=== PATIENT | female | born 1990 | race Caucasian/White ===

== ENCOUNTER → 2017-03-12 | Outpatient (CLI) | payer MEDICAID | LOC: FIMAGING 12:08 | PROVIDERS: ATTEND Physician Assistant Medical | DX: G43.009 Migraine without aura, not intractable, without status migrainosus (principal) ==

== ENCOUNTER 2017-10-31 07:12 | Day surgery (SDC) | payer MEDICAID ==
[2017-10-31 07:36] VITALS: PULSE 120
[2017-10-31] MEDS ORDERED: LR 1,000 ML IV ONE (07:40)
--- NOTE | 2017-10-31 08:32 | PDGENHP ---
History & Physical Chief Complaint: RUQ pain, diarrhea, nausea and vomiting Relevant Physical Exam: GEN: NAD. Cardiac: RRR. Lungs: CTA B. Abd: Soft, nt, nd
[2017-10-31] MEDS ORDERED: MIDAZOLAM 2 MG/2 ML VIAL ONE (08:42)
[2017-10-31] MEDS ORDERED: PROPOFOL/EMULSION 500 MG/50 ML BOTTLE IV ONE (08:46)
[2017-10-31] MEDS ORDERED: PROPOFOL 200 MG/20 ML VIAL ONE (09:06)
[2017-10-31] MEDS ORDERED: ALBUTEROL 3 ML DEYVIAL IH PRN (09:11)
[2017-10-31] MEDS ORDERED: ONDANSETRON 4 MG/2 ML VIAL IVP PRN (09:11)
[2017-10-31] MEDS ORDERED: NALOXONE HCL 0.4 MG/ML INJ IVP PRN (09:11)
[2017-10-31] MEDS ORDERED: LR 500 ML IV PRN (09:11)
--- NOTE | 2017-10-31 09:11 | PDANEPAE ---
ANE Past Medical History - Cardiovascular History Hx Hypertension: No Hx Arrhythmias: No Hx Chest Pain: No Hx Coronary Artery / Peripheral Vascular Disease: No Hx CHF / Valvular Disease: Yes Hx Palpitations: No Cardiovascular History Comment: mitral valve prolapse - Pulmonary History Hx COPD: No Hx Asthma/Reactive Airway Disease: No Hx Recent Upper Respiratory Infection: No Hx Oxygen in Use at Home: No Hx Sleep Apnea: No Sleep Apnea Screening Result - Last Documented: Negative Pulmonary History Comment: recent bronchitis-on Antibx. Uses Albuterol inhaler PRN. sleep apnea symptoms. 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 muscular atrophy - Neurologic History Hx Cerebrovascular Accident: No Hx Seizures: No Hx Dementia: No Neurologic History Comment: migraines,cluster H/A's - Endocrine History Hx Diabetes: No - Renal History Hx Renal Disorders: No Renal History Comment: frequent urination - Liver History Hx Hepatic Disorders: No - Neurological & Psychiatric Hx Hx Neurological and Psychiatric Disorders: Yes Neurological / Psychiatric History Comment: neck and back pain since teenager. 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 Chronic Lyme Disease. 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 wisdom teeth removal- oral surgeon's office ANE Review of Systems Review of Systems: - Exercise capacity METS (RN): 4 METS ANE Patient History - Allergies Allergies/Adverse Reactions: fluoroquinolones Allergy (Uncoded 10/24/17 15:50) Other-Enter Comments - Home Medications Home Medications: Albuterol 10/24/17 [Last Taken Unknown] BENADRYL 10/24/17 [Last Taken Unknown] Loratadine 10/24/17 [Last Taken 10/30/17] Magnesium Glycinate 10/24/17 [Last Taken 10/30/17] Melatonin 10/24/17 [Last Taken Unknown] Moducare 10/24/17 [Last Taken 10/30/17] Monolaurin 10/24/17 [Last Taken 10/30/17] Probiotic 10/24/17 [Last Taken Unknown] SUMAtriptan 10/24/17 [Last Taken Unknown] - NPO status NPO Since - Liquids (Date): 10/31/17 NPO Since - Liquids (Time): 01:00 NPO Since - Solids (Date): 10/30/17 NPO Since - Solids (Time): 10:00 - Smoking Hx Smoking Status: Heavy smoker ANE Labs/Vital Signs - Vital Signs Blood Pressure: 127/81 Heart Rate: 120 Respiratory Rate: 18 O2 Sat (%): 96 Height: 175.26 cm Weight: 58.06 kg ANE Physical Exam - Airway Neck exam: FROM Mallampati Score: Class 1 Mouth exam: normal dental/mouth exam - Pulmonary Pulmonary: no respiratory distress, no rales or rhonchi, clear to auscultation - Cardiovascular Cardiovascular: regular rate and rhythym, no murmur, rub, or gallop - ASA Status ASA Status: III ANE Anesthesia Plan Anesthesia Plan: GA with mask
[2017-10-31] MEDS ORDERED: RANITIDINE 50 MG/2 ML VIAL ONE (09:14)
--- NOTE | 2017-10-31 09:31 | GIREPORT ---
[facility] - Endoscopy Department Patient Name: Danielle Alvarez Procedure Date: 10/31/2017 8:33 AM Patient Type: Outpatient Attending MD/ ER Physician: Kelvin Head MD Procedure: Upper GI endoscopy Indications: Epigastric abdominal pain, Dysphagia, Nausea with vomiting Providers: Kelvin Head MD Medicines: Monitored Anesthesia Care Complications: No immediate complications. Description of Procedure: After obtaining informed consent, the endoscope was passed under direct vision. Throughout the procedure, the patient's blood pressure, pulse, and oxygen saturations were monitored continuously. The Endoscope was intro duced through the mouth, and advanced to the second part of duodenum. The [facility] er GI endoscopy was accomplished without difficulty. The patient tolerated th e procedure well. Findings: The examined esophagus was normal. Biopsies were taken with a cold forc eps for histology and mast cells. Verification of patient identification fo r the specimen was done by the physician and nurse using the patient's name a nd date. Estimated blood loss was minimal. The entire examined stomach was normal. Biopsies were taken with a cold forceps for histology and mast cells. Verification of patient identific ation for the specimen was done by the physician and nurse using the patient' s name and date. Estimated blood loss was minimal. The examined duodenum was normal. Biopsies were taken with a cold force ps for histology and mast cells. Verification of patient identification fo r the specimen was done by the physician and nurse using the patient's name a nd date. Estimated blood loss was minimal. Estimated Blood Loss: Estimated blood loss: none. Post Op Diagnosis: - Normal esophagus. Biopsied for histology and mast cells. - Normal stomach. Biopsied for histology and mast cells. - Normal examined duodenum. Biopsied for histology and mast cells. Recommendation: - Discharge patient to home (with escort). - Resume previous diet. - Continue present medications. - Return to GI clinic as previously scheduled. - Your pathology results are available within 10 days. - Thank you for allowing me to participate in the care of your patient. Attending Participation: I personally performed the entire procedure. Kelvin Head MD Kelvin Head MD 10/31/2017 9:30:46 AM This report has been signed electronicallyDajoselyn Head MD Number of Addenda: 0 Note Initiated On: 10/31/2017 8:33 AM [email or web address]
--- NOTE | 2017-10-31 09:36 | GIREPORT ---
[facility] - Endoscopy Department Patient Name: Danielle Alvarez Procedure Date: 10/31/2017 9:05 AM Patient Type: Outpatient Attending / ER Physician: Kelvin Head MD Procedure: Colonoscopy Indications: Change in bowel habits Providers: Kelvin Head MD Medicines: Monitored Anesthesia Care Complications: No immediate complications. Description of Procedure: After obtaining informed consent, the scope was passed under direct vis ion. Throughout the procedure, the patient's blood pressure, pulse, and oxyg en saturations were monitored continuously. The was introduced through the anus and advanced to the terminal ileum, with identification of the appendic eal orifice and IC valve. The colonoscopy was performed without difficulty. The patient tolerated the procedure well. The quality of the bowel preparat ion was good. Findings: The perianal and digital rectal examinations were normal. The terminal ileum appeared normal. The colon (entire examined portion) appeared normal. Biopsies were take n with a cold forceps for histology. Verification of patient identificati on for the specimen was done by the physician and nurse using the patient' s name and date. Estimated blood loss was minimal. The retroflexed view of the distal rectum and anal verge was normal and showed no anal or rectal abnormalities. Estimated Blood Loss: Estimated blood loss: none. Post Op Diagnosis: - The examined portion of the ileum was normal. - The entire examined colon is normal. Biopsied. - The distal rectum and anal verge are normal on retroflexion view. Recommendation: - Discharge patient to home (with escort). - Resume previous diet. - Continue present medications. - Follow up in GI clinic as previously scheduled. - Repeat colonoscopy at age 51 for screening purposes. - Await pathology results. Results are available within 10 days. - Thank you for allowing me to participate in the care of your patient. Attending Participation: I personally performed the entire procedure. Kelvin Head MD Kelvin Head MD 10/31/2017 9:35:42 AM This report has been signed electronicallyKelvin Head MD Number of Addenda: 0 Note Initiated On: 10/31/2017 9:05 AM Total Procedure Duration Time 0 hours 19 minutes 48 seconds [email or web address]
--- NOTE | 2017-10-31 09:43 | POSTANESTH ---
Post Anesthetic Evaluation Cardiovascular Status: Normal, Stable, Similar to Pre-Op Cond Respiratory Status: Normal, Stable, Similar to Pre-op Cond. Level of Consciousness/Mental Status: Can Participate in Eval Pain Control: Adequate, Prn Tx Ordered Nausea/Vomiting Control: Adequate, Prn Tx Ordered Complications Possibly Related to Anesthesia: None Noted
[2017-10-31 10:24] VITALS: TEMP 97.2
[2017-10-31 11:39] VITALS: RESP 16
[2017-10-31 11:44] VITALS: BP 94/67; O2SAT 99
== END 2017-10-31 11:10 | disposition home or self-care (01) ==
LOC: FSGY 07:12
PROVIDERS: ATTEND Internal Medicine Gastroenterology
PROC: 0DB68ZX Excision of Stomach, Via Natural or Artificial Opening Endoscopic, Diagnostic (ICD-10-PCS; principal; 2017-10-31 08:30)
PROC: 0DB98ZX Excision of Duodenum, Via Natural or Artificial Opening Endoscopic, Diagnostic (ICD-10-PCS; principal; 2017-10-31 08:30)
PROC: 0DBE8ZX Excision of Large Intestine, Via Natural or Artificial Opening Endoscopic, Diagnostic (ICD-10-PCS; principal; 2017-10-31 08:30)
PROC: 0DB58ZX Excision of Esophagus, Via Natural or Artificial Opening Endoscopic, Diagnostic (ICD-10-PCS; principal; 2017-10-31 08:30)
DX: R19.4 Change in bowel habit (principal); R10.13 Epigastric pain; R13.10 Dysphagia, unspecified; R11.2 Nausea with vomiting, unspecified
CPT/HCPCS: J1200; J2250; J2704; J2780

== ENCOUNTER → 2019-02-11 | Outpatient (CLI) | payer MEDICAID | LOC: FCPNEURO 21:00 | PROVIDERS: ATTEND Student in an Organized Health Care Education/Training Program | DX: G47.10 Hypersomnia, unspecified (principal); G47.419 Narcolepsy without cataplexy; R53.82 Chronic fatigue, unspecified ==